=== PATIENT | female | born 1990 | race Caucasian/White ===

== ENCOUNTER 2018-07-12 21:21 | Inpatient (IN) | payer OTHER ==
[2018-07-12] MEDS ORDERED: KETOROLAC TROMETHAMINE 30 MG/1 ML VIAL IVPUSH ONE (22:22)
[2018-07-12] MEDS ORDERED: ONDANSETRON 4 MG/2 ML VIAL IVPUSH ONE (22:22)
[2018-07-12] MEDS ORDERED: SODIUM CHLORIDE 0.9% 500 ML INFUS.BAG IV ONE (22:25)
[2018-07-12] MEDS ORDERED: KETOROLAC TROMETHAMINE 30 MG/1 ML VIAL ONE (22:37)
[2018-07-12] MEDS ORDERED: ONDANSETRON 4 MG/2 ML VIAL ONE (22:37)
--- NOTE | 2018-07-12 23:06 | PDOC ---
History of Present Illness - General Chief Complaint: Pain Stated Complaint: ABDOMINAL PAIN Time Seen by Provider: 07/12/18 22:04 History Source: Patient Exam Limitations: No Limitations - History of Present Illness Initial Comments: 07/12/18 22:58 Patient is a 26-year-old female with history of VTOP, chlam, c/o abd pain, nausea, vomiting, fever. States she started to have some lower abd pain since last night which has progressively worsened throughout the day. Pain is currently 10/10, constant, with sharp and points to the right suprapubic area. She had nausea and vomiting last night but no vomiting today because she had nausea. No prior episode of this pain, no abd surgery. No dysuria. PMHX: as above PSocHx: neg etoh, durg, cig PFamHx: noncontributory ALL: NKDA GENERAL/CONSTITUTIONAL: [No fever or chills. No weakness. No weight change.] HEAD, EYES, EARS, NOSE AND THROAT: [No change in vision. No ear pain or discharge. No sore throat.] CARDIOVASCULAR: [No chest pain or shortness of breath.] RESPIRATORY: [No cough, wheezing, or hemoptysis.] GASTROINTESTINAL: (+) nausea, vomiting, diarrhea or constipation. No rectal bleeding.] GENITOURINARY: [No dysuria, frequency, or change in urination.] MUSCULOSKELETAL: [No joint or muscle swelling or pain. No neck or back pain.] SKIN AND BREASTS: [No rash or easy bruising.] NEUROLOGIC: [No headache, vertigo, loss of consciousness, or loss of sensation.] PSYCHIATRIC: [No depression or anxiety.] ENDOCRINE: [No increased thirst. No abnormal weight change.] HEMATOLOGIC/LYMPHATIC: [No anemia, easy bleeding, or history of blood clots.] ALLERGIC/IMMUNOLOGIC: [No hives or skin allergy. No latex allergy.] GENERAL: [The patient is awake, alert, and fully oriented, in moderate painful distress.] HEAD: [Normal with no signs of trauma.] EYES: [Pupils equal, round and reactive to light, extraocular movements intact, sclera anicteric, conjunctiva clear.] ENT: [Ears normal, nares patent, oropharynx clear without exudates. Moist mucous membranes.] NECK: [Normal range of motion, supple without lymphadenopathy, JVD, or masses.] LUNGS: [Breath sounds equal, clear to auscultation bilaterally. No wheezes, and no crackles.] HEART: [Regular rate and rhythm, normal S1 and S2 without murmur, rub.] ABDOMEN: [Soft, (+) tenderness RLQ and suprapubic, normoactive bowel sounds. No guarding, no rebound. No masses.] PELVIC: mild left adnexal tenderness, no CMT, nontender right adnexa EXTREMITIES: [Normal range of motion, no edema. No clubbing or cyanosis. No cords, erythema, or tenderness.] NEUROLOGICAL: [Cranial nerves II through XII grossly intact. Normal speech, normal gait.] PSYCH: [Normal mood, normal affect.] SKIN: [Warm, Dry, normal turgor, no rashes or lesions noted.] Past History - Past Medical History Allergies/Adverse Reactions: Allergies Allergy/AdvReac Type Severity Reaction Status Date / Time No Known Allergies Allergy Verified 07/12/18 21:34 COPD: No - Suicide/Smoking/Psychosocial Hx Smoking History: Current every day smoker Have you smoked in the past 12 months: Yes Number of Cigarettes Smoked Daily: 3 Information on smoking cessation initiated: No Hx Alcohol Use: No Drug/Substance Use Hx: No Substance Use Type: None *Physical Exam - Vital Signs Last Vital Signs Temp Pulse Resp BP Pulse Ox 100 F H 98 H 18 125/64 100 07/12/18 21:35 07/12/18 21:35 07/12/18 21:35 07/12/18 21:35 07/12/18 21:35 ED Treatment Course - LABORATORY CBC & Chemistry Diagram: 07/12/18 22:59 07/12/18 22:59 - RADIOLOGY Radiology Studies Ordered: Category Date Time Status ABDOMEN & PELVIS CT WITH CONTR [CT] Stat CT Scan 07/12/18 22:24 Ordered - Medications Given in the ED: ED Medications Discontinued Medications Generic Name Dose Route Start Last Admin Trade Name Freq PRN Reason Stop Dose Admin Ketorolac Tromethamine 30 mg 07/12/18 22:22 07/12/18 22:35 Toradol Injection - IVPUSH 07/12/18 22:23 30 mg ONCE ONE Administration Ondansetron HCl 4 mg 07/12/18 22:22 07/12/18 22:35 Zofran Injection IVPUSH 07/12/18 22:23 4 mg ONCE ONE Administration Sodium Chloride 1,000 ml 07/12/18 22:25 07/12/18 22:35 Normal Saline - IV 07/12/18 22:26 1,000 ml ONCE ONE Administration Medical Decision Making - Medical Decision Making 07/12/18 22:58 Patient is a 26-year-old female with history of VTOP, chlam, c/o abd pain, nausea, vomiting, fever. States she started to have some lower abd pain since last night which has progressively worsened throughout the day. Concerns for appendicitis, UTI, ruptured ovarian not likely usually not assoc with fever. labs, pain meds CTAP with IV contrast reasess Patient continues to be tender in the RLQ, US ordered to R/O pelvic structure involvement. Patient Full Name: JOSE MANUEL BAGLEY Patient Accession No: [id number] Patient : 1990 Reason for Exam: RLQ ABD PAIN Referring Physician: YUDI RICHARD Discussed w/ A Waltersphelan to follow up with ptient Individualized dose optimization techniques were used for this CT. THIS DOCUMENT HAS BEEN ELECTRONICALLY SIGNED Eladio Morales MD 07/13/2018 00:38 EST M.D. Please call [facility] Manager [phone] with questions. INTERPRETING RADIOLOGIST: Eladio Morales MD Electronically Signed: Jul 13, 2018 12:38AM EDT Patient Full Name: JOSE MANUEL BAGLEY Patient Accession No: [id number] Patient : 1990 Reason for Exam: RLQ ABD PAIN Referring Physician: Patient Name: YUDI RICHARD THIS IS A PRELIMINARY REPORT FROM IMAGING ASSIGNMENT EDITOR DATE OF SERVICE: 2018-07-12 23:51:08 IMAGES: [id number] EXAM: CT abdomen and pelvis with contrast HISTORY: Right lower quadrant pain COMPARISON: None. FINDINGS: Appendix is normal thickness at approximately 6-6.5 mm. No periappendiceal inflammation. (There are areas of mild appendiceal wall but not sufficient to make a diagnosis of appendicitis. If appendicitis is suspected then close followup/observation recommended). No bowel obstruction, free air, or free fluid. Negative for diverticulitis or colitis. Normal kidneys urinary tract and urinary bladder. 9 mm enhancing structure right lobe liver. Possibly hemangioma. Normal spleen. Normal pancreas. Normal adrenal glands. Contracted gallbladder. No obvious abnormalities of the reproductive organs. Osseous structures are intact. Individualized dose optimization techniques were used for this CT. THIS DOCUMENT HAS BEEN ELECTRONICALLY SIGNED Eladio Morales MD 07/13/2018 00:30 SABINO Grubbs. Please call [facility] Manager [phone] with questions. INTERPRETING RADIOLOGIST: Eladio Morales MD Electronically Signed: Jul 13, 2018 12:31AM EDT . 07/13/18 02:29 Patient Full Name: JOSE MANUEL BAGLEY Patient Accession No: [id number] Patient : 1990 Reason for Exam: pelvic pain , r/o torsion Referring Physician: Patient Name: YUDI RICHARD THIS IS A PRELIMINARY REPORT FROM IMAGING ASSIGNMENT EDITOR DATE OF SERVICE: 2018-07-13 01:34:22 IMAGES: 40 EXAM: TRANSVAGINAL ULTRASOUND US HISTORY: Pelvic pain rule out torsion COMPARISON: None. FINDINGS: Normal uterus. Normal homogeneous endometrial complex measuring 4.5 mm thickness. Normal right ovary with positive arteriovenous Doppler blood flow. 9 mm left ovarian follicle noted. Normal left ovary with positive arteriovenous Doppler blood flow. No acute abnormalities identified. THIS DOCUMENT HAS BEEN ELECTRONICALLY SIGNED Eladio Morales MD 07/13/2018 02:04 SABINO Carpenter Please call [facility] Manager [phone] with questions. 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 *DC/Admit/Observation/Transfer Diagnosis at time of Disposition: Abdominal pain, right lower quadrant - Discharge Dispostion Condition at time of disposition: Stable Decision to Admit order: Yes - Referrals - Patient Instructions Additional Instructions: Your Discharge Instructions: You must call primary care physician within 24 hours to arrange follow-up. Return to the Emergency Department with any new, persistent or worsening symptoms, for fever, chills, SOB, dizziness or any other concerning changes that may occur. - Post Discharge Activity
[2018-07-12 23:10] LABS: BASO % 0.9 % (0-2.0); EOS % 1.3 % (0-4.5); HEMATOCRIT 37.6 % (32.4-45.2); HEMOGLOBIN 12.8 GM/dL (10.7-15.3); LYMPH % 17.3 % (8-40); MCH 30.3 pg (25.7-33.7); MEAN CELL VOLUME 89.3 fl (80-96); MEAN PLT VOLUME 9.8 fl (7.5-11.1); MONO % 16.6 % (3.8-10.2); NEUT % 63.9 % (42.8-82.8); PLATELET COUNT 181 K/MM3 (134-434); RBC 4.22 M/mm3 (3.60-5.2); RDW 13.4 % (11.6-15.6); WHITE BLOOD COUNT 3.4 K/mm3 (4.0-10.0)
[2018-07-12 23:12] LABS: URINE APPEARANCE CLEAR; URINE BILIRUBIN NEGATIVE (<2.0 mg/dL); URINE COLOR YELLOW; URINE GLUCOSE (UA) NEGATIVE (NEGATIVE); URINE KETONE NEGATIVE (NEGATIVE); URINE LEUK ESTERASE NEGATIVE (NEGATIVE); URINE NITRITE NEGATIVE (NEGATIVE); URINE PROTEIN NEGATIVE (NEGATIVE); URINE UROBILINOGEN 4.0 E.U/dl mg/dL (0.2-1.0)
[2018-07-12 23:36] LABS: ALBUMIN 3.5 g/dl (3.4-5.0); ANION GAP 8 MMOL/L (8-16); BLOOD UREA NITROGEN 10 mg/dL (7-18); CALCIUM 8.4 mg/dL (8.5-10.1); CHLORIDE 103 mmol/L (98-107); CO2 27 mmol/L (21-32); CREATININE 1.1 mg/dL (0.55-1.02); GLUCOSE,RANDOM 82 mg/dL (74-106); LIPASE 79 U/L (73-393); POTASSIUM 4.2 mmol/L (3.5-5.1); SGOT/AST 15 U/L (15-37); SGPT/ALT 21 U/L (12-78); SODIUM 138 mmol/L (136-145)
[2018-07-12 23:40] LABS: ALK PHOS 75 U/L (45-117); BILIRUBIN,TOTAL 0.2 mg/dL (0.2-1.0); TOT PROT 7.2 g/dl (6.4-8.2)
--- NOTE | 2018-07-13 04:38 | PN ---
Teaching Attending Note Name of Resident: Jaquelin Conway ATTENDING PHYSICIAN STATEMENT I saw and evaluated the patient. Chart, data, imaging reviewed. I reviewed the resident's note and discussed the case with the resident. I agree with the resident's findings and plan as documented. SUBJECTIVE: 28yo woman w/ pmhx of chlamydia infx, c/o b/l lower abdominal pain which started around 6pm on 07/12, spontaneously without any precipitating factors, associated with nausea and vomiting. Denied any diarrhea or urinary symptoms. No recent travels. OBJECTIVE: Last Vital Signs Temp Pulse Resp BP Pulse Ox 97.8 F 62 18 106/63 99 07/13/18 04:30 07/13/18 04:30 07/13/18 04:30 07/13/18 04:30 07/13/18 04:30 general -nad, appears comfortable heent- at, nc, moist oral mucosa neck- supple cv - s1+S2+ rrr chest clear abd - b/l lower abdominal tenderness to palpation, neg for CVA tenderness ext- no pedal edema Abnormal Lab Results 07/12/18 07/12/18 07/12/18 22:59 22:59 22:59 WBC 3.4 L Monocytes % 16.6 H Creatinine 1.1 H Calcium 8.4 L Urine Urobilinogen 4.0 e.u/dl H CT of abdomen reviewed- showed possible appendicitis ASSESSMENT AND PLAN: 28yo woman with likely acute appendicitis and low grade fevers -admit to med/surg -NPO -IV fluid hydration -VA, PTT, type and screen -surgery consult -zofran prn if nausea/vomiting -blood culture x2 -levofloxacin and metronidazole -morphine prn for pain control -f/u official reads for abd CT and pelvic U/S -baseline ekg #leukopenia -send HIV serology -retest for chlamydia/gonorrhea NAAT in urine #DVT ppx -heparin sc
--- NOTE | 2018-07-13 04:44 | HP ---
CHIEF COMPLAINT:Abdominal pain, nausea/vomiting PCP: unknown HISTORY OF PRESENT ILLNESS: 28 yr old woman A1 presents with lower abdominal pain and lower back pain since yesterday afternoon around 6pm. pain is LLQ nonpositional, squeezing cony Associated with vomiting:around 1pm, 2 episodes nonbloody nonbilious. a/w constipation for 2 days, which is unusual for the patient. last bm a/w abdominal cramping which did not resolve after the bowel movement. no previous episodes of similar pain. denies chest pain, cough, palpitations, diarrhea. 4 months ago she underwent D&C without complications. LMP started on Saturday ( came 1 week earlier than expected), denies current vaginal bleeding/dicharge. ER course was notable for: (1) transvag u/s, abdominal pelvic ct (2) (3) Recent Travel: none PAST MEDICAL HISTORY: x2 (2017, 2018), recent termination 5 months ago hx of chlamydial infection PAST SURGICAL HISTORY: denies Social History: Smokin-3/cigs daily for past 3-4yrs. Alcohol:occasionally Drugs: denies Family History: father's 2 sisters with breast cancer: 1 sister ( unknown if directly related to cancer), 1 sister in her 60's survived cancer( unknown type, unknown age of dx) Allergies No Known Allergies Allergy (Verified 07/12/18 21:34) HOME MEDICATIONS: REVIEW OF SYSTEMS CONSTITUTIONAL: Present: loss of appetite, fevers Absent: chills, diaphoresis, generalized weakness, malaise,weight change HEENT: Absent: rhinorrhea, nasal congestion, throat pain, throat swelling, difficulty swallowing, mouth swelling, eye pain, visual changes CARDIOVASCULAR: Absent: chest pain, syncope, palpitations, irregular heart rate, lightheadedness , peripheral edema RESPIRATORY: Absent: cough, shortness of breath, dyspnea with exertion, orthopnea, wheezing, stridor, hemoptysis GASTROINTESTINAL: Present:abdominal pain, nausea, vomiting,constipation Absent: abdominal distension, diarrhea, , melena, hematochezia GENITOURINARY: Absent: dysuria, frequency, urgency, hesitancy, hematuria, flank pain, genital pain MUSCULOSKELETAL: Absent: myalgia, arthralgia, joint swelling, back pain, neck pain SKIN: Absent: rash, itching, pallor HEMATOLOGIC/IMMUNOLOGIC: Absent: easy bleeding, easy bruising, lymphadenopathy, frequent infections ENDOCRINE: Absent: unexplained weight gain, unexplained weight loss, heat intolerance, cold intolerance NEUROLOGIC: Absent: headache, focal weakness or paresthesias, dizziness, PHYSICAL EXAMINATION Vital Signs - 24 hr 07/12/18 07/13/18 21:35 04:30 Temperature 100 F H 97.8 F Pulse Rate 98 H Pulse Rate [ 62 Right] Respiratory 18 18 Rate Blood Pressure 125/64 Blood Pressure 106/63 [Right Arm] O2 Sat by Pulse 100 99 Oximetry (%) GENERAL: Awake, alert, in no acute distress. HEAD: Normal with no signs of trauma. EYES: Pupils equal, round and reactive to light, extraocular movements intact, sclera anicteric, conjunctiva clear. No lid lag. EARS, NOSE, THROAT: oropharynx clear without exudates. Moist mucous membranes. NECK: Normal range of motion, supple without lymphadenopathy, JVD, or masses. LUNGS: Breath sounds equal, clear to auscultation bilaterally. No wheezes, and no crackles. No accessory muscle use. HEART: Regular rate and rhythm, normal S1 and S2 without murmur, rub or gallop. ABDOMEN: Soft, +tenderness in RLQ, not distended, normoactive bowel sounds, no guarding, no rebound, no masses. No hepatomegaly or splenomegaly. psoas and obturator's negative, grissom's negative MUSCULOSKELETAL: Normal range of motion at all joints. No bony deformities or tenderness. No CVA tenderness. UPPER EXTREMITIES: 2+ radial pulses, warm, well-perfused. No cyanosis. No clubbing. No peripheral edema. LOWER EXTREMITIES: warm, well-perfused. No calf tenderness. No peripheral edema. NEUROLOGICAL: Cranial nerves II-XII intact. Normal speech.facial symmetry 5/5 handgrip PSYCHIATRIC: Cooperative. Good eye contact. Appropriate mood and affect. SKIN: Warm, dry, normal turgor, no rashes or lesions noted, normal capillary refill. Laboratory Results - last 24 hr 07/12/18 07/12/18 07/12/18 22:59 22:59 22:59 WBC 3.4 L RBC 4.22 Hgb 12.8 Hct 37.6 MCV 89.3 MCH 30.3 MCHC 34.0 RDW 13.4 Plt Count 181 MPV 9.8 Absolute Neuts (auto) 2.2 Neutrophils % 63.9 Lymphocytes % 17.3 Monocytes % 16.6 H Eosinophils % 1.3 Basophils % 0.9 Nucleated RBC % 0 Sodium 138 Potassium 4.2 Chloride 103 Carbon Dioxide 27 Anion Gap 8 BUN 10 Creatinine 1.1 H Creat Clearance w eGFR 59.58 Random Glucose 82 Calcium 8.4 L Total Bilirubin 0.2 AST 15 ALT 21 Alkaline Phosphatase 75 Total Protein 7.2 Albumin 3.5 Lipase 79 Beta HCG, Quant < 1.0 Urine Color Yellow Urine Appearance Clear Urine pH 7.0 Ur Specific [place] 1.025 Urine Protein Negative Urine Glucose (UA) Negative Urine Ketones Negative Urine Blood Negative Urine Nitrite Negative Urine Bilirubin Negative Urine Urobilinogen 4.0 e.u/dl H Ur Leukocyte Esterase Negative ASSESSMENT/PLAN: 28 yr old woman with no significant phmx presents with lower abdominal pain admitted for further evaluation. #Abdominal pain - differentials include endometriosis, appendicitis, PUD, - prelim report of CT scan suspicious for appendicitis, however pt has no white count, awaiting final read, surgery consulted for further evaluation. emperically treat with levofloxicin 750ivpb q24hr and flagyl 500ivpb q8hr - given hx of chlamydia, suspicious for PUD, pending chlamydia/gono/trich testing from cervical swab - pending final read of transvaginal u/s - no torsion seen, - zofran prn for nausea, vomiting - keep npo for now pending surgical evaluation - type screen, pt/ptt, ekg ordered for preop - beta hcg negative, low suspicion for ectopic #offered HIV testing, said she had been tested few months and does not want to be tested again now. #Elevated creatine, likely MACRINA, check abd/pelvic ct for any acute renal pathology - hydrate and repeat, likely pre-renal from vomiting and poor po intake #diet: npo for now #DVT: heparin TID Visit type - Emergency Visit Emergency Visit: Yes ED Registration Date: 07/13/18 Care time: The patient presented to the Emergency Department on the above date and was hospitalized for further evaluation of their emergent condition. - New Patient This patient is new to me today: Yes Date on this admission: 07/13/18 - Critical Care Critical Care patient: No Hospitalist Screening - Colonoscopy Questionnaire Colonoscopy Questionnaire: Colonoscopy Questionnaire - Patient: 50 - 75 years old and never had a screening colonoscopy: No History of colon or rectal polyps, or CA: No History of IBD, Crohn's disease or UC: No History of abdominal radiation therapy as a child: No - Relative: 1 with colon or rectal CA, or polyps at age 60 or younger: No Colon or rectal CA diagnosed at age 45 or younger: No Multiple relatives with colon or rectal CA: No - Outcome: Screening Result: Negative Screen
[2018-07-13 06:42] VITALS: BMI 27.1
[2018-07-13] MEDS: SODIUM CHLORIDE 1,000 ML IV SCH (06:53)
[2018-07-13 10:11] LABS: INR 1.12 (0.83-1.09); PROTHROMBIN TIME (PATIENT) 12.7 SEC (9.7-13.0)
[2018-07-13 10:14] LABS: ACTIVATED PTT 30.9 SECONDS (25.2-36.5)
--- NOTE | 2018-07-13 14:42 | PN ---
Progress Note (short form) - Note Progress Note: Subjective: no N/V , no fever or chills. still has lower abd pain. no vaginal discharge . had fever sexually active with one partner, no h/o STDs, just finished her perioid for this month Objective: Vital Signs: Last Vital Signs Temp Pulse Resp BP Pulse Ox 98.3 F 72 20 115/66 100 07/13/18 09:30 07/13/18 09:30 07/13/18 09:30 07/13/18 09:30 07/13/18 09:00 Laboratory Results - last 24 hr 07/12/18 07/12/18 07/12/18 22:59 22:59 22:59 WBC 3.4 L RBC 4.22 Hgb 12.8 Hct 37.6 MCV 89.3 MCH 30.3 MCHC 34.0 RDW 13.4 Plt Count 181 MPV 9.8 Absolute Neuts (auto) 2.2 Neutrophils % 63.9 Lymphocytes % 17.3 Monocytes % 16.6 H Eosinophils % 1.3 Basophils % 0.9 Nucleated RBC % 0 PT with INR INR PTT (Actin FS) Sodium 138 Potassium 4.2 Chloride 103 Carbon Dioxide 27 Anion Gap 8 BUN 10 Creatinine 1.1 H Creat Clearance w eGFR 59.58 Random Glucose 82 Calcium 8.4 L Total Bilirubin 0.2 AST 15 ALT 21 Alkaline Phosphatase 75 Total Protein 7.2 Albumin 3.5 Lipase 79 Beta HCG, Quant < 1.0 Urine Color Yellow Urine Appearance Clear Urine pH 7.0 Ur Specific [place] 1.025 Urine Protein Negative Urine Glucose (UA) Negative Urine Ketones Negative Urine Blood Negative Urine Nitrite Negative Urine Bilirubin Negative Urine Urobilinogen 4.0 e.u/dl H Ur Leukocyte Esterase Negative Blood Type Antibody Screen 07/13/18 07/13/18 07/13/18 09:08 09:08 11:10 WBC RBC Hgb Hct MCV MCH MCHC RDW Plt Count MPV Absolute Neuts (auto) Neutrophils % Lymphocytes % Monocytes % Eosinophils % Basophils % Nucleated RBC % PT with INR 12.70 INR 1.12 H PTT (Actin FS) 30.9 Sodium Potassium Chloride Carbon Dioxide Anion Gap BUN Creatinine Creat Clearance w eGFR Random Glucose Calcium Total Bilirubin AST ALT Alkaline Phosphatase Total Protein Albumin Lipase Beta HCG, Quant Urine Color Urine Appearance Urine pH Ur Specific [place] Urine Protein Urine Glucose (UA) Urine Ketones Urine Blood Urine Nitrite Urine Bilirubin Urine Urobilinogen Ur Leukocyte Esterase Blood Type O POSITIVE O POSITIVE Antibody Screen Negative Physical Exam: NAD , pleasant and cooperative CV: RRR Lungs: CATB Abd: soft, ND, TTP in suprapubic area, and Lower quadrants. no rebound tenderness or guarding . Pelvic: Nl hair distribution, cervix was not visualized . cervical motion tenderness and tenderness or R adnexia Ext : no edema imaging : CT scan image and report reviewed. No Pancreatitis , appendicitis , or acute pathology . US report reviewed. Assessment/Plan: 28 y/o lady who presented with abd pain/N/V/and fever. 1- Abd pain N/V and fever : CT scan does not show any evidence of appendicitis or other pathology. US with no ovarian torsion . PID is suspected given that Pelvic exam shows tenderness in cervical wall motion and to R adnexa. 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 - New Patient This patient is new to me today: Yes Date on this admission: 07/13/18 - Critical Care Critical Care patient: No
[2018-07-13] MEDS ORDERED: CEFOXITIN SODIUM 2 GM in DEXTROSE 5%-WATER - 100 ML IVPB SCH (15:00)
[2018-07-13] MEDS ORDERED: PT OWN MED DRAWER 7, Y5N ONE ×2 (15:17→21:03)
[2018-07-13] MEDS: CEFOXITIN SODIUM 2 GM in DEXTROSE 5%-WATER - 100 ML IVPB SCH ×2 (15:18→21:09)
--- NOTE | 2018-07-13 16:22 | PN ---
Progress Note (short form) - Note Progress Note: surgery pt seen and examined. full consult dictated. 28f with hx pid, presents with lower abd pain and fever. wbc wnl. Ct negative for appendicitis. medical team started pt on levaquin and flagyl, placed of liquid diet, and requested surgical eval to r/o appendicitis. on exam abd is soft, with minimal lower abd tenderness and luq tenderness without guarding. no hernias plan- unlikely appendicitis with negative ct normal wbc in patient tolerating diet, however, abx could be treating early appendicitis and intefere in clinical picture. since pt feels better and appendicitis unlikely, she is declining appendectomy. continue treatment for presumed pid. no surgical intervention.
--- NOTE | 2018-07-13 16:53 | CONS ---
DATE OF CONSULTATION: 07/13/2018 REASON FOR CONSULTATION: Rule out appendicitis. REQUESTED BY: This is an inpatient consultation requested by the medical service. BRIEF HISTORY: This is a 28-year-old female with a history of pelvic inflammatory disease in the past who presents to [facility] complaining of abdominal pain/constipation followed by fever. Because of this pain, of which she has had multiple bouts in the past, minus the fever, she came to the [facility] emergency room. There she was found to have a normal white blood cell count without a shift. She had a CAT scan of the abdomen and pelvis which was read as a negative study. She had a pelvic ultrasound which also was negative for any pathology. She was admitted to the hospital, started on Levaquin and Flagyl antibiotics and the request was made for surgical evaluation to rule out appendicitis. Since being in the hospital her pain has mostly resolved. She has requested and received a diet per the medical team and is tolerating liquids. She has had no fever since last night and that was only 100.0 and her vital signs have remained stable. She denies nausea, denies vomiting, denies diarrhea, denies blood in the stool, denies recent weight loss. PAST MEDICAL HISTORY: Significant for PID. PAST SURGICAL HISTORY: Significant for a termination of 5 months ago. SOCIAL HISTORY: Positive for tobacco, positive for alcohol. She is sexually active. ALLERGIES: She has no known drug allergies. FAMILY HISTORY: Significant for a sister who has a cancer, she does not know the type. REVIEW OF SYSTEMS: General: Denies fever or malaise. Cardiac: No chest pain or palpitations. Respiratory: Denies shortness of breath or wheeze. Gastrointestinal: See HPI. Genitourinary: Denies dysuria. Musculoskeletal: Denies joint pain, joint swelling. Psychiatric: Denies depression or hearing voices. PHYSICAL EXAMINATION:General: This is a well-developed, well-nourished 28-year-old female in no di stress. Vital Signs: She is afebrile. HEENT: Head is normocephalic. Sclerae anicteric. Neck: Supple. Chest: Clear. Abdomen: Soft. It is nondistended. She has a supraumbilical piercing scar site. She has minimal tenderness on deep palpation in the right lower quadrant as well as the left lower quadrant and the left upper quadrant. There is no guarding. She has no hernias. Extremities: Her extremities have no edema. LABORATORY DATA: White blood cell count is low at 3.4. Her monocytes are elevated at 16.6. Her neutrophils are normal. Her coagulation profile is unremarkable. Her chemistries are unremarkable. IMAGING: As in HPI. ASSESSMENT: A 28-year-old female with lower abdominal pain, normal white blood cell count, normal CAT scan on a liquid diet, receiving Levaquin and Flagyl. At this point it is unlikely that she has appendicitis. However, any time antibiotics are given it is possible that this could treat an early appendicitis and affect the clinical picture. In ether event, the patient was offered laparoscopy and appendectomy and declines. She states that since it is unlikely that she has appendicitis and that since she feels much better already, she does not wish to undergo a surgery that is likely to be nontherapeutic. At this point the patient appears to be evaluated and treated with pelvic inflammatory disease. She has already had 2 gynecological exams on this admission and a workup with gonorrhea, chlamydia and gynecologic evaluation has been called. At this point there will be no general surgical intervention and I will be available on an as-needed basis. DO LEIGHA LIMA/[id number]
[2018-07-13] MEDS: DOXYCYCLINE HYCLATE 100 MG CAPSULE PO SCH (17:46)
[2018-07-13] MEDS ORDERED: DOCUSATE SODIUM 100 MG CAPSULE (FP) PO ONE (23:36)
--- NOTE | 2018-07-13 23:41 | CON.OBG ---
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 She rested whole day Saturday (07/12), but still not felt relieved from pain she came to ER on Saturday night . T max documented in ER 100. she did not have any vomiting since being in ER pt now c/o constipation , unable to do bM since Saturday AM Normally she has BM x3 times a day because she thinks she takes lot of fiber in her diet She received Levaquin & Flagyl in ER along with toradol & zofran once Pelvic CT scan done negative for appendicitis , or any cysts Pelvic Sonogram Ut 6.8, em 5mm, Rt ovary 3.4x1.7x3.1 cm & Lt ovary 2.4x1.7x2.5 cm . normal sonogram Past OB HX G1 04/19/2017 Baby Girl, 6'7" at [facility] in [place]. 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 Trisomy 13 or 18 at [facility] . h/o po meds followed expulsion of fetus followed By Suction evacuation for retained placenta . Contraception none Recent Pa ; post Und ab period in April , May [id number], July 07 x no pain . Pa 28 -30 days cycle, regular , moderate, no pains . 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 No h/o PID - History Source History Provided By: Patient Limitations to Obtaining History: No Limitations - Past Medical History TAILMAN: No: Migraine, Seizure Cardio/Vascular: No: HTN, Murmur Pulmonary: No: Asthma Gastrointestinal: Yes: Other (unable to do BM since Sat AM is her concern ) Renal/: No: UTI Reproductive: No: Ectopic , PID ...LMP: 07/07/18 ...: No ...: 2 (03/2018 Ind Ab 16-18 wks pill+ suction evacuation [facility]) ...Para: 1 (04/19/17 [facility] ) Heme/Onc: Yes: Other (denies) Infectious Disease: Yes: STD's (chlamydia in 2011 ) Psych: Yes: Other (none ) - Past Surgical History Past Surgical History: Yes: None - Alcohol/Substance Use Hx Alcohol Use: No History of Substance Use: reports: None - Smoking History Smoking history: Current every day smoker Have you smoked in the past 12 months: Yes Aproximately how many cigarettes per day: 3 Home Medications - Allergies Allergies/Adverse Reactions: Allergies Allergy/AdvReac Type Severity Reaction Status Date / Time No Known Allergies Allergy Verified 07/12/18 21:34 - Home Medications Home Medications: Ambulatory Orders NK [No Known Home Medication] 07/13/18 Physical Exam-BODY STYLIST Vital Signs: Vital Signs Temperature 98.7 F 07/13/18 19:05 Pulse Rate 67 07/13/18 19:05 Respiratory Rate 18 07/13/18 19:05 Blood Pressure 117/56 07/13/18 19:05 O2 Sat by Pulse Oximetry (%) 100 07/13/18 22:00 Constitutional: Yes: Well Nourished, No Distress Eyes: Yes: WNL HENT: Yes: WNL Neck: Yes: WNL Cardiovascular: Yes: Other (ot examined) Respiratory: Yes: Other (not checked) Gastrointestinal: Yes: WNL, Normal Bowel Sounds, Soft, Tenderness ( Mild deep around umblicus & in RLQ). No: Tenderness, Rebound ...Rectal Exam: Yes: Deferred Renal/: No: CVA Tenderness - Left, CVA Tenderness - Right Pelvis: Yes: WNL External Genitalia: Yes: Normal Internal Exam Deferred: Yes Vaginal Exam: Yes: Normal. No: Bleeding, Discharge Cervix: Yes: Normal. No: Bleeding, Cerv Motion Tenderness, Lesion Uterus: Yes: Normal, Freely Moveable, Anteverted, Firm. No: Tender Adnexa: Normal: Bilateral, Not Palpable: Bilateral Breast(s): Yes: WNL Musculoskeletal: Yes: WNL Extremities: Yes: WNL. No: Calf Tenderness Edema: No Integumentary: Yes: Tattoos Neurological: Yes: WNL, Alert, Oriented ...Motor Strength: WNL Psychiatric: Yes: WNL, Alert, Oriented Labs: CBC, BMP 07/12/18 22:59 07/12/18 22:59 Laboratory Tests 07/12/18 07/13/18 22:59 11:45 AST 15 ALT 21 Beta HCG, Quant < 1.0 C. trachomatis (JAREN) Pending N. gonorrhoeae (JAREN) Pending Problem List - Problems (1) Abdominal pain, right lower quadrant Code(s): R10.31 - RIGHT LOWER QUADRANT PAIN Assessment/Plan 28 yrs non non specific abdominal pain , lo grade fever one time documented , vomiting one time pt currently on IV cefoxitin & IV doxycyclin clinically suspected Ac Pid or Ac appendicitis in ER is doubtful by my clinical exam ..unlikely UTI ( u/a neg ) normal WBC & normal ct scan & normal pelvic sono not in favor of above diagnosis. pt is concerned about unable to do BM even upon forcing but only for one day , but according to her that is not normal for her , may be laxative may benefit her.
[2018-07-14] MEDS: SODIUM CHLORIDE 1,000 ML IV SCH ×2 (00:13→14:57)
[2018-07-14] MEDS: CEFOXITIN SODIUM 2 GM in DEXTROSE 5%-WATER - 100 ML IVPB SCH ×4 (02:17→21:14)
[2018-07-14 07:50] LABS: BASO % 0.9 % (0-2.0); EOS % 2.6 % (0-4.5); HEMATOCRIT 35.3 % (32.4-45.2); HEMOGLOBIN 11.6 GM/dL (10.7-15.3); LYMPH % 28.9 % (8-40); MCH 29.7 pg (25.7-33.7); MCHC 32.8 g/dl (32.0-36.0); MEAN CELL VOLUME 90.3 fl (80-96); MEAN PLT VOLUME 9.6 fl (7.5-11.1); MONO % 26.6 % (3.8-10.2); PLATELET COUNT 173 K/MM3 (134-434); RDW 13.4 % (11.6-15.6); WHITE BLOOD COUNT 3.2 K/mm3 (4.0-10.0)
[2018-07-14] MEDS ORDERED: POLYETHYLENE GLYCOL 3350 119 GM BTL PO ONE (08:06)
[2018-07-14 08:33] LABS: ANION GAP 9 MMOL/L (8-16); BLOOD UREA NITROGEN 7 mg/dL (7-18); CALCIUM 8.2 mg/dL (8.5-10.1); CHLORIDE 110 mmol/L (98-107); CO2 24 mmol/L (21-32); CREATININE 0.9 mg/dL (0.55-1.02); GLUCOSE,RANDOM 81 mg/dL (74-106); SODIUM 143 mmol/L (136-145)
[2018-07-14] MEDS: DOXYCYCLINE HYCLATE 100 MG CAPSULE PO SCH ×2 (09:45→17:00)
[2018-07-14] MEDS: DOCUSATE SODIUM 100 MG CAPSULE (FP) PO SCH (09:45)
[2018-07-14 10:53] LABS: ACANTHOCYTES 0; ANISOCYTOSIS 0; HELMET CELLS 0; HOWELL-JOLLY BODIES 0; MACROCYTOSIS 0; OVALOCYTE 0; PLATELET ESTIMATE NORMAL; ROULEAU 0; SICKELED CELLS 0; TARGET CELLS 0; TEAR DROP CELLS 0; TOXIC GRANULATION 0
--- NOTE | 2018-07-14 12:08 | PN ---
Progress Note (short form) - Note Progress Note: ID Consult dictated Abdominal pain syndrome ?PID ? Viral gastroenteritis Leukopenia/ monocytosis No clinical evidence for appendicitis Continue treatment for PID with Cefoxitin/ doxycycline Pt declines HIV testing
--- NOTE | 2018-07-14 13:08 | CONS ---
DATE OF CONSULTATION: 07/14/2018 HISTORY: The patient is a 28-year-old healthy female who is evaluated for abdominal pain syndrome. She was well until Wednesday, July 11, 2018. She developed onset of lower abdominal pain associated with 1 episode of vomiting. She states she developed fever to 103 at home. Symptoms persisted to the point that she presented to the emergency room on July 12, 2018 and was admitted. The patient reports abrupt onset of lower abdominal pain later followed by mid and upper abdominal pain associated with nausea and vomiting. She did not have any diarrhea. She reports that the pain increased with attempts to defecate. She denies any ill contacts. She lives at home with her [id number] daughter, who is well. No contacts at home or at work with gastrointestinal symptoms. She just finished her menstrual period and denies any vaginal discharge or excessive pain with her menses. She is sexually active with 1 partner. Does not use condoms. Was HIV tested in the recent past and was negative. Upon evaluation at [facility], pelvic exam performed by hospitalist revealed cervical motion tenderness. CAT scan and transvaginal ultrasounds were unrevealing. Of note, she had an electively termination of in March of this year. Postprocedure course was uncomplicated. PAST MEDICAL HISTORY: Essentially negative. She was treated for Chlamydia in 2011. ALLERGIES: No known allergies. 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 Positive history of tobacco. Sexually active with 1 partner, unprotected. No history of alcohol abuse or illicit drug use. She reports testing HIV negative in the recent past. SYSTEMS REVIEW: Neurologic: No loss of consciousness, seizure activity, focal weakness. Cardiac: Negative chest pain or palpitations. Respiratory: Negative cough or sputum production. Gastrointestinal: As per HPI. Genitourinary: Negative for dysuria or hematuria. LABORATORY DATA: White count 3.2 with 41 neutrophils, 28 lymphocytes, 26 monocytes. Hematocrit 35.3, platelet count 173, BUN 7, creatinine 0.9. Liver enzymes normal. Lipase 79. Urinalysis negative. Cultures pending. PHYSICAL EXAMINATION: General: She is awake and alert. Seated in bed in no acute distress. Not acutely toxic appearing. The patient is smiling and interactive. Vital Signs: Temperature 98.2, T-max 100, blood pressure 110/73, pulse 58 and regular, respirations 20 per minute. HEENT: Sclerae anicteric. Neck: Supple. No palpable nodes. Heart: Sounds S1, S2. Lungs: Clear. Abdomen: Soft. There is mild tenderness elicited on exam above the umbilicus just below the epigastrium. No palpable mass, rebound, or rigidity. No tenderness in the right or left lower quadrants. Extremities: Negative for edema. No rashes noted. IMPRESSION: 1. Abdominal pain syndrome. 2. Leukopenia. PLAN: Etiology of abdominal pain syndrome not clear. Agree with treatment for PID in light of cervical motion tenderness on exam. Differential diagnosis includes viral gastroenteritis, endometriosis. Acute appendicitis and mesenteric lymphadenitis unlikely in light of CAT scan findings. Continue antibiotics, analgesics. AS[employer]BLER [employer] and Surgical follow ups. Thank you for the kind referral. LESIA EDEN M.D. [id number]
--- NOTE | 2018-07-14 14:48 | PN ---
Physical Exam: SUBJECTIVE: Patient seen and examined at bedside. No acute complaints. Abdominal pain persists. Denies n/v/d, has been constipated, passing small caliber stool. OBJECTIVE: Vital Signs Period Temp Pulse Resp BP Sys/Olivarez Pulse Ox Last 24 Hr 98.2 F-98.8 F 58-67 18-20 110-125/56-73 100-100 GENERAL: A&Ox3, NAD HEAD: NC/AT EYES: PERRLA, EOMI, sclera anicteric, conjunctiva clear. No ptosis. ENT: Ears normal, nares patent, oropharynx clear without exudates, moist mucous membranes. NECK: Trachea midline, full range of motion, supple. LUNGS: Breath sounds equal, clear to auscultation bilaterally, no wheezes, no crackles, no accessory muscle use. HEART: Regular rate and rhythm, S1, S2 without murmur, rub or gallop. ABDOMEN: Soft, non-distended, suprapubic tendernes EXTREMITIES: 2+ pulses, warm, well-perfused, no edema. NEUROLOGICAL: Cranial nerves II-XII grossly intact, 5/5 strength throughout PSYCH: Normal mood, normal affect SKIN: Warm, dry, normal turgor, no rashes or lesions noted Laboratory Results - last 24 hr 07/12/18 07/14/18 07/14/18 22:59 07:00 07:00 WBC 3.2 L RBC 3.90 Hgb 11.6 Hct 35.3 MCV 90.3 MCH 29.7 MCHC 32.8 RDW 13.4 Plt Count 173 MPV 9.6 Absolute Neuts (auto) 1.3 L Neutrophils % 41.0 L D Neutrophils % (Manual) 45.5 Band Neutrophils % 0.0 Lymphocytes % 28.9 D Lymphocytes % (Manual) 31.3 Monocytes % 26.6 H Monocytes % (Manual) 19 H Eosinophils % 2.6 D Eosinophils % (Manual) 2.0 Basophils % 0.9 Basophils % (Manual) 1.0 Myelocytes % (Man) 0 Promyelocytes % (Man) 0 Blast Cells % (Manual) 0 Nucleated RBC % 0 Metamyelocytes 0 Hypochromia 0 Toxic Granulation 0 Dohle Bodies 0 Platelet Estimate Normal Polychromasia 0 Poikilocytosis 0 Basophilic Stippling 0 Anisocytosis 0 Microcytosis 0 Macrocytosis 0 Spherocytes 0 Sickle Cells 0 Target Cells 0 Tear Drop Cells 0 Ovalocytes 0 Stomatocytes 0 Helmet Cells 0 [place]roz[place] Bodies 0 Hagerman Rings 0 [place] Cells 0 Acanthocytes (Spur) 0 Rouleaux 0 Fragmented RBCs 0 Schistocytes 0 Sodium 143 Potassium 4.0 Chloride 110 H Carbon Dioxide 24 Anion Gap 9 BUN 7 Creatinine 0.9 Creat Clearance w eGFR > 60 Random Glucose 81 Calcium 8.2 L Urine HCG, Qual Cancelled Active Medications Generic Name Dose Route Start Last Admin Trade Name Blaire PRN Reason Stop Dose Admin Docusate Sodium 100 mg 07/14/18 10:00 07/14/18 09:45 Colace - PO 100 mg DAILY GABBY Administration Doxycycline Hyclate 100 mg 07/13/18 18:00 07/14/18 09:45 Vibramycin - PO 100 mg BID@1000,1800 GABBY Administration Sodium Chloride 1,000 mls @ 100 mls/hr 07/13/18 05:30 07/14/18 00:13 Normal Saline - IV 07/14/18 15:29 100 mls/hr ASDIR GABBY Administration Cefoxitin Sodium 2 gm/ 100 mls @ 200 mls/hr 07/13/18 15:00 07/14/18 09:45 Dextrose IVPB 200 mls/hr Q6H-IV GABBY Administration Protocol ASSESSMENT/PLAN: 28 y/o F w/ no significant PMHx admitted w/ lower abdominal pain #Abdominal pain - no acute pathology on CT - pending G/C studies for r/o PID - empiric treatment with Doxycycline/Cefoxitin per ID - full liquid diet - no surgical intervention - no BOBBIN PAINTER intervention #HIV testing - declined #Elevated creatine - resolved - NS @ 100 #FEN - NS @ 100 - lytes wnl, repeat BMP in AM - full liquid diet #DVT PPX - heparin TID #dispo - med/surg - possible dc tomorrow Visit type - Emergency Visit Emergency Visit: No - New Patient This patient is new to me today: Yes Date on this admission: 07/14/18 - Critical Care Critical Care patient: No
--- NOTE | 2018-07-14 18:09 | PN ---
Teaching Attending Note Name of Resident: Justin Metzger ATTENDING PHYSICIAN STATEMENT I saw and evaluated the patient. I reviewed the resident's note and discussed the case with the resident. I agree with the resident's findings and plan as documented. SUBJECTIVE: No fever or chills. Abd pain is much jaime r. had 2 big BMs after laxatives this am OBJECTIVE: NAD , pleasant and cooperative CV: RRR Lungs: CATB Abd: soft, ND, TTP in suprapubic area, and Lower quadrants. no rebound tenderness or guarding . Ext : no edema Assessment/Plan: 28 y/o lady who presented with abd pain/N/V/and fever. 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 IVF 3- constipation : bowel regimen possible dc tomorrow
[2018-07-14] MEDS ORDERED: PT OWN MED DRAWER 7, Y5N ONE ×2 (21:06→21:11)
[2018-07-14] MEDS: HEPARIN NA (PORCINE) 5,000 UNITS/ML 1ML VIAL SQ SCH (21:15)
[2018-07-15] MEDS: CEFOXITIN SODIUM 2 GM in DEXTROSE 5%-WATER - 100 ML IVPB SCH ×2 (02:39→08:57)
[2018-07-15] MEDS: HEPARIN NA (PORCINE) 5,000 UNITS/ML 1ML VIAL SQ SCH (06:07)
[2018-07-15 07:45] LABS: BASO % 0.9 % (0-2.0); EOS % 4.6 % (0-4.5); HEMATOCRIT 39.4 % (32.4-45.2); LYMPH % 40.9 % (8-40); MCH 29.5 pg (25.7-33.7); MCHC 32.9 g/dl (32.0-36.0); MEAN CELL VOLUME 89.8 fl (80-96); MEAN PLT VOLUME 9.6 fl (7.5-11.1); NEUT % 29.6 % (42.8-82.8); PLATELET COUNT 189 K/MM3 (134-434); RBC 4.39 M/mm3 (3.60-5.2); RDW 13.4 % (11.6-15.6); WHITE BLOOD COUNT 2.6 K/mm3 (4.0-10.0)
[2018-07-15 07:57] LABS: ANION GAP 7 MMOL/L (8-16); BLOOD UREA NITROGEN 4 mg/dL (7-18); CALCIUM 8.7 mg/dL (8.5-10.1); CHLORIDE 107 mmol/L (98-107); CO2 27 mmol/L (21-32); CREATININE 0.9 mg/dL (0.55-1.02); GLUCOSE,RANDOM 82 mg/dL (74-106); POTASSIUM 4.1 mmol/L (3.5-5.1); SODIUM 141 mmol/L (136-145)
[2018-07-15] MEDS ORDERED: PT OWN MED DRAWER 7, Y5N ONE (08:56)
[2018-07-15 09:14] VITALS: BP 136/61; PULSE 105; TEMP 98.2
[2018-07-15] MEDS: DOXYCYCLINE HYCLATE 100 MG CAPSULE PO SCH (10:05)
[2018-07-15] MEDS: DOCUSATE SODIUM 100 MG CAPSULE (FP) PO SCH (10:06)
[2018-07-15 13:40] LABS: ANISOCYTOSIS 1+; MACROCYTOSIS 0; PLATELET ESTIMATE NORMAL
--- NOTE | 2018-07-15 18:22 | DS ---
Physical Exam: SUBJECTIVE: Patient seen and examined at bedside. No acute complaints. Abdominal pain greatly reduced. Denies n/v/d, f/c, cp, sob. OBJECTIVE: Vital Signs Period Temp Pulse Resp BP Sys/Olivarez Pulse Ox Last 24 Hr 98.2 F-98.4 F 64-105 20-20 105-136/61-86 100-100 PHYSICAL EXAM GENERAL: A&Ox3, NAD HEAD: NC/AT EYES: PERRLA, EOMI, sclera anicteric, conjunctiva clear. No ptosis. ENT: Ears normal, nares patent, oropharynx clear without exudates, moist mucous membranes. NECK: Trachea midline, full range of motion, supple. LUNGS: Breath sounds equal, clear to auscultation bilaterally, no wheezes, no crackles, no accessory muscle use. HEART: Regular rate and rhythm, S1, S2 without murmur, rub or gallop. ABDOMEN: Soft, non-distended, suprapubic tendernes EXTREMITIES: 2+ pulses, warm, well-perfused, no edema. NEUROLOGICAL: Cranial nerves II-XII grossly intact, 5/5 strength throughout PSYCH: Normal mood, normal affect SKIN: Warm, dry, normal turgor, no rashes or lesions noted LABS Laboratory Results - last 24 hr 07/13/18 07/15/18 07/15/18 11:45 06:50 06:50 WBC 2.6 L RBC 4.39 Hgb 13.0 Hct 39.4 MCV 89.8 MCH 29.5 MCHC 32.9 RDW 13.4 Plt Count 189 MPV 9.6 Absolute Neuts (auto) 0.8 L Neutrophils % 29.6 L D Neutrophils % (Manual) 26.5 L D Band Neutrophils % 0.0 Lymphocytes % 40.9 H D Lymphocytes % (Manual) 44.9 H D Monocytes % 24.0 H Monocytes % (Manual) 19 H Eosinophils % 4.6 H Eosinophils % (Manual) 6.1 H D Basophils % 0.9 Basophils % (Manual) 0.0 Myelocytes % (Man) 1 D Promyelocytes % (Man) 0 Blast Cells % (Manual) 0 Nucleated RBC % 0 Metamyelocytes 0 Hypochromia 0 Platelet Estimate Normal Polychromasia 1+ Poikilocytosis 0 Anisocytosis 1+ Microcytosis 1+ Macrocytosis 0 Sodium 141 Potassium 4.1 Chloride 107 Carbon Dioxide 27 Anion Gap 7 L BUN 4 L Creatinine 0.9 Creat Clearance w eGFR > 60 Random Glucose 82 Calcium 8.7 C. trachomatis (JAREN) Negative N. gonorrhoeae (JAREN) Negative MICROBIOLOGY Urine culture 07/12/18: negative Blood culture 07/13/18: no growth after 48 hours Gonorrhea/chlamydia JAREN: negative IMAGING CT Abd/Pelvis w/ contrast 07/13/18: "Negative study If symptoms persist consider surgical consultation and follow-up imaging" Transvaginal US 07/13/18: "Normal pelvic sonogram " HOSPITAL COURSE: Date of Admission:07/13/18 Patient is a 28 y/o F A1 w/ PMHx chlamydia p/w lower abdominal pain x1 day a /w 2 episodes NBNB emesis and constipation x 2 days. Urine and blood cultures were unrevealing. CT Abd/Pelvis w/ contrast and Transvaginal US were performed as per above. Evaluated by surgery and OBGYN, who determined no need for acute intervention. PID was considered given h/o chlamydia and G/C JAREN studies sent. Patient was treated empirically w/ doxycycline and cefoxitin. On morning of 07/15 patient left AMA despite thorough discussion of risks of doing so. Patient further declined offers of outpatient referrals to PCP and NUTRITIONALIST services. G/C studies resulted in afternoon and patient was contacted by phone with results, urged to seek f/u care on her own recognizance. Date of Discharge: 07/15/18 Minutes to complete discharge: 40 Discharge Summary Reason For Visit: RT LQABD Condition: Stable - Instructions Diet, Activity, Other Instructions: Your Discharge Instructions: You must call primary care physician within 24 hours to arrange follow-up. Return to the Emergency Department with any new, persistent or worsening symptoms, for fever, chills, SOB, dizziness or any other concerning changes that may occur. Disposition: AGAINST MEDICAL ADVICE - Home Medications Comprehensive Discharge Medication List: Ambulatory Orders NK [No Known Home Medication] 07/13/18 This patient is new to me today: No Emergency Visit: No Critical Care patient: No - Discharge Referral Referred to [facility] Med P.C.: No
--- NOTE | 2018-07-15 18:36 | HOSP ---
Subjective - Review of Symptoms Events since last encounter: patient left AMA this am and did not wait for my eval. she was spoken to and advised to stay by Dr. Metzger Physical Examination Vital Signs: Vital Signs Temperature 98.2 F 07/15/18 09:14 Pulse Rate 105 H 07/15/18 09:14 Respiratory Rate 20 07/15/18 09:14 Blood Pressure 136/61 07/15/18 09:14 O2 Sat by Pulse Oximetry (%) 100 07/15/18 09:00 Labs: CBC, BMP 07/15/18 06:50 07/15/18 06:50
--- NOTE | 2018-07-16 15:02 | EKG ---
Test Reason : Blood Pressure : / mmHG Vent. Rate : 057 BPM Atrial Rate : 057 BPM P-R Int : 172 ms QRS Dur : 088 ms QT Int : 450 ms P-R-T Axes : 035 017 030 degrees QTc Int : 438 ms SINUS BRADYCARDIA OTHERWISE NORMAL ECG NO PREVIOUS ECGS AVAILABLE Confirmed by LYDIA TUCKER MD ([id number]) on 07/16/2018 3:02:25 PM Referred By: Confirmed By:LYDIA TUCKER MD
== END 2018-07-15 11:18 | disposition left against medical advice (07) | DRG 758 ==
LOC: JERFT 21:21 → JERBED 07-13 03:45 → OBSVTOIN 07-13 04:46 → J6S 07-13 05:23
PROVIDERS: ADMIT Internal Medicine; ATTEND Internal Medicine
DX: N73.9 Female pelvic inflammatory disease, unspecified (principal); N17.9 Acute kidney failure, unspecified; D72.819 Decreased white blood cell count, unspecified; K59.00 Constipation, unspecified; F17.210 Nicotine dependence, cigarettes, uncomplicated; R10.32 Left lower quadrant pain
CPT/HCPCS: 36415; 74177-TC; 76830-TC; 80048; 80053; 81003; 83690; 84702; 85025; 85610; 85730; 86850; 86900; 86901; 87040; 87086; 87491; 87591; 93005; 93010; 99283-25; G0378; J1644; J7030

== ENCOUNTER 2019-05-11 09:15 | Inpatient (IN) | payer OTHER | END 2019-05-13 17:35 | disposition home or self-care (01) | LOC: JLDR 09:15 → J3W 20:30 ==